=== PATIENT | female | born 1945 | race Caucasian/White ===

== ENCOUNTER → 2016-11-11 | Outpatient (CLI) | payer OTHER | LOC: BMCIMAGING 14:35 | DX: Z12.31 Encounter for screening mammogram for malignant neoplasm of breast (principal) | CPT/HCPCS: G0202 ==

== ENCOUNTER 2017-08-09 10:31 | Emergency (ER) | payer OTHER ==
[2017-08-09 10:40] VITALS: TEMP 97.9
--- NOTE | 2017-08-09 11:29 | EDPHY ---
General Narrative: CHIEF COMPLAINT: Possible blood clot, right leg pain HISTORY OF PRESENT ILLNESS: Patient complains of 1 day history of pain in the right leg. This started behind the right knee and has spread to the entirety of the knee leg. Extends from the right buttock to the right ankle. [id number]. Associated with some swelling which may be chronic and symmetric to the left leg. Also associated with some varicosities of the pain that she 1st noted yesterday. No redness or warmth. No recent travel, trauma or surgery. No history of venous thrombolic event. She is not on any estrogen. She contacted her primary care physician, and they suggested she present to the emergency department to rule out DVT. No other associated complaints or modifying factors. REVIEW OF SYSTEMS: Ten systems reviewed and are negative unless otherwise noted in the HPI PCP: Dr. Little SPECIALISTS: Ophthalmology PAST MEDICAL HISTORY: Glaucoma, thyroid dysfunction, peripheral edema chronically, urinary hesitancy PAST SURGICAL HISTORY: Urethral dilatation SOCIAL HISTORY: Nonsmoker. Occasional alcohol. No drug use. FAMILY HISTORY: Noncontributory EXAMINATION General Appearance: Alert, no distress Head: normocephalic, atraumatic Eyes: Pupils equal and round, no conjunctival pallor or injection ENT, Mouth: Mucous membranes moist Neck: Normal inspection, supple, non-tender Respiratory: Lungs are clear to auscultation. No wheezing, rhonchi or crackles Cardiovascular: Regular rate and rhythm. No murmur Gastrointestinal: Abdomen is soft and nontender. No tympany rigidity Back: No midline tenderness. No crepitus, step-off or deformity. no bony abnormalities Neurological: A&O, nonfocal, normal gait. Symmetric strength of the lower extremities. Normal sensation of both feet. Normal proprioception of the great toes on both feet Skin: Warm and dry, no rash. No petechiae or purpura. Some varicosities of both lower extremities. Extremities: Nontender, symmetric range of motion of the lower extremities. There is symmetric, 1+ pitting edema of the lower extremities. No erythema. Negative Tirnity. No pain with passive dorsiflexion of the right foot. No palpable cords Psychiatric: Mood and affect normal DIFFERENTIAL DIAGNOSES: Including but not limited to DVT, strain, spasm, sciatica, peripheral edema MDM: 11:25 a.m. Right lower extremity pain, swelling and spasm. Patient is here to rule out DVT. While I do feel this is on the differential, this is less likely to me. She has pain that radiates down the right leg from the buttock, more consistent with sciatica. Negative straight leg raise. Chronic pitting edema that is symmetric. Negative for evidence of acute cord compression or cauda equina. Laboratory studies pending. DVT studies pending. 12:15 p.m. Contacted by radiologist Dr. Sanchez. Ultrasound of the right lower extremity reveals no evidence of DVT. 12:45 p.m. Patient re-evaluated. I discussed the negative ultrasound findings. We discussed her peripheral edema at length. She asked if I could change her medication that she takes, the hydrochlorothiazide. I told her that I would defer to her primary care physician that she contact them. They may allow her to take addition medication in the interim. She should follow up with them for ongoing management and care of the peripheral edema. She should return to the emergency depart for any chest pain or shortness of breath. She will attempt to increase her activity slightly down that she knows of no DVT to see if this alleviates her symptoms, as it has done so in the past. She is comfortable with discharge home and answered all of her questions. She is discharged in stable condition. - Diagnostics Imaging Results: Imaging Impressions Extremity Venous Study 08/09/17 11:27 Impression: No evidence of deep vein thrombosis in the right lower extremity. Results called and discussed with Elia Salinas, at 08/09/2017 12:14 - History Smoking Status: Never smoked - Objective Vital Signs: Initial Vital Signs Temperature (C) 97.9 F 08/09/17 10:36 Heart Rate 73 08/09/17 10:36 Respiratory Rate 18 08/09/17 10:36 Blood Pressure 145/76 H 08/09/17 10:36 O2 Sat (%) 98 08/09/17 10:36 O2 Delivery Mode Room Air Allergies/Adverse Reactions: No Known Allergies Allergy (Unverified 08/09/17 10:33) Home Medications: Medication Instructions Recorded ARMOUR THYROID 08/09/17 Glaucoma Meds 08/09/17 Hydrochlorothiazide 08/09/17 RAPAFLO 08/09/17 Laboratory Results: Laboratory Results 08/09/17 11:25 08/09/17 11:25 08/09/17 08/09/17 08/09/17 11:25 11:25 11:25 WBC 4.39 10^3/uL 10^3/uL (3.80-9.50) RBC 3.89 10^6/uL L 10^6/uL (4.18-5.33) Hgb 12.9 g/dL g/dL (12.6-16.3) Hct 37.6 % L % (38.0-47.0) MCV 96.7 fL fL (81.5-99.8) MCH 33.2 pg pg (27.9-34.1) MCHC 34.3 g/dL g/dL (32.4-36.7) RDW 13.5 % % (11.5-15.2) Plt Count 180 10^3/uL 10^3/uL (150-400) MPV 10.9 fL fL (8.7-11.7) Neut % (Auto) 48.5 % % (39.3-74.2) Lymph % (Auto) 34.9 % % (15.0-45.0) Addison % (Auto) 10.5 % % (4.5-13.0) Eos % (Auto) 5.7 % % (0.6-7.6) Baso % (Auto) 0.2 % L % (0.3-1.7) Nucleat RBC Rel Count 0.0 % % (0.0-0.2) Absolute Neuts (auto) 2.13 10^3/uL 10^3/uL (1.70-6.50) Absolute Lymphs (auto) 1.53 10^3/uL 10^3/uL (1.00-3.00) Absolute Monos (auto) 0.46 10^3/uL 10^3/uL (0.30-0.80) Absolute Eos (auto) 0.25 10^3/uL 10^3/uL (0.03-0.40) Absolute Basos (auto) 0.01 10^3/uL L 10^3/uL (0.02-0.10) Absolute Nucleated RBC 0.00 10^3/uL 10^3/uL (0-0.01) Immature Gran % 0.2 % % (0.0-1.1) Immature Gran # 0.01 10^3/uL 10^3/uL (0.00-0.10) PT 12.5 SEC SEC (12.0-15.0) INR 0.94 (0.83-1.16) APTT 23.4 SEC SEC (23.0-38.0) Sodium 140 mEq/L mEq/L (134-144) Potassium 4.0 mEq/L mEq/L (3.5-5.2) Chloride 107 mEq/L mEq/L (97-110) Carbon Dioxide 22 mEq/l mEq/l (22-31) Anion Gap 11 mEq/L mEq/L (8-16) BUN 21 mg/dL mg/dL (7-23) Creatinine 0.9 mg/dL mg/dL (0.6-1.0) Estimated GFR > 60 Glucose 92 mg/dL mg/dL (70-100) Calcium 9.2 mg/dL mg/dL (8.5-10.4) NT-Pro-B Natriuret Pep 310 pg/mL H pg/mL (0-125) Departure - Departure Disposition: Home, Routine, Self-Care Clinical Impression: Mild peripheral edema, Leg cramp Condition: Good Instructions: Leg Cramps (ED), Leg Edema (ED) Additional Instructions: 1. Contact her primary care physician to discuss further treatment of the peripheral edema 2. ED precautions for worsening edema, shortness of breath, chest pain Referrals: Aby Little MD [Primary Care Provider] - As per Instructions
[2017-08-09 11:37] LABS: % IMMATURE GRANULYOCYTES 0.2 % (0.0-1.1); ABSOLUTE IMMATURE GRANULOCYTES 0.01 10^3/uL (0.00-0.10); ADD DIFF? NO; ADD MORPH? NO; ADD SCAN? NO; ATYPICAL LYMPHOCYTE FLAG 0 (0-99); FRAGMENT RBC FLAG 0 (0-99); HEMATOCRIT 37.6 % (38.0-47.0); HEMOGLOBIN 12.9 g/dL (12.6-16.3); LEFT SHIFT FLG 0 (0-99); LIPEMIA HEMOLYSIS FLAG 90 (0-99); MEAN CELL HEMOGLOBIN 33.2 pg (27.9-34.1); MEAN CELL HEMOGLOBIN CONCENTR. 34.3 g/dL (32.4-36.7); MEAN CELL VOLUME 96.7 fL (81.5-99.8); MEAN PLATELET VOLUME 10.9 fL (8.7-11.7); PLATELET CLUMPS FLAG 0 (0-99); PLATELET COUNT 180 10^3/uL (150-400); RED BLOOD CELL COUNT 3.89 10^6/uL (4.18-5.33); RED CELL DISTRIBUTION WIDTH 13.5 % (11.5-15.2)
[2017-08-09 11:43] LABS: INR 0.94 (0.83-1.16); PROTIME(PATIENT) 12.5 SEC (12.0-15.0)
[2017-08-09 11:44] LABS: APTT 23.4 SEC (23.0-38.0)
[2017-08-09 11:51] LABS: ANION GAP 11 mEq/L (8-16); CALCIUM 9.2 mg/dL (8.5-10.4); CARBON DIOXIDE 22 mEq/l (22-31); CHLORIDE 107 mEq/L (97-110); CREATININE 0.9 mg/dL (0.6-1.0); GLOMERULAR FILTRATION RATE > 60; GLUCOSE 92 mg/dL (70-100); SODIUM 140 mEq/L (134-144)
[2017-08-09 13:17] VITALS: BP 138/73; PULSE 69; RESP 16; O2SAT 95
== END 2017-08-09 13:17 | disposition home or self-care (01) ==
DX: R25.2 Cramp and spasm (principal); R60.0 Localized edema

== ENCOUNTER → 2017-11-15 | Outpatient (CLI) | payer OTHER | LOC: FIMAGING 10:59 | PROVIDERS: ATTEND Family Medicine | DX: Z12.31 Encounter for screening mammogram for malignant neoplasm of breast (principal) ==